=== PATIENT | female | born 1990 | race Caucasian/White ===

== ENCOUNTER → 2024-07-07 10:01 | Outpatient (REF) | payer BC, SELFPAY ==
[2024-07-07 12:42] LABS: ALT (SGPT) 18 U/L (0-35); AST (SGOT) 25 U/L (14-36); Albumin 3.8 g/dl (3.5-5.0); Alkaline Phosphatase 147 U/L (38-126); Blood Urea Nitrogen 13 mg/dl (7-17); Carbon Dioxide 24 mmol/L (22-30); Chloride 101 mmol/L (98-107); Glucose 184 mg/dl (70-99); Potassium 4.3 mmol/L (3.5-5.1); Sodium 133 mmol/L (135-145); Total Bilirubin 0.4 mg/dl (0.2-1.3); Total Protein 6.7 g/dl (6.3-8.2); eGFR > 60.00
[2024-07-07 12:46] LABS: Glycohemoglobin (HgbA1c) 8.5 % (4.0-5.6)
[2024-07-07 15:00] LABS: Microalbumin, Random Urine 3.5 mg/dl (0.6-1.7)
== END ==
LOC: HWLAB 10:01
PROVIDERS: ATTENDING PHYSICIAN Internal Medicine Endocrinology, Diabetes & Metabolism; FAMILY PHYSICIAN Internal Medicine
DX: E10.9 Type 1 diabetes mellitus without complications (principal)
CPT/HCPCS: 36415; 80053; 82043; 82570; 83036

== ENCOUNTER 2024-07-16 08:10 | Emergency (ER) | payer BC, SELFPAY ==
[2024-07-16 08:14] VITALS: BP 143/100
[2024-07-16 09:34] LABS: Glucose - Point of Care 95 mg/dl (70-99)
--- NOTE | 2024-07-16 09:38 | ED.GENMED ---
History of Present Illness
General
Chief Complaint: Medication Reaction
Time Seen by Provider: 07/16/24 09:28
History of Present Illness
History of Present Illness:
Patient is a 34-year-old woman with history of diabetes recently started Zepbound presenting to the emergency department with nausea vomiting diarrhea. Patient states that she had her first dose of this at [facility] yesterday. 6 hours later developed
abdominal cramping countless episodes of emesis and loose stools. She called her slat grader who said that these are side effects of this about however hers are significantly severe and advised her to come to the emergency department. Patient
does feel dehydrated as well as lightheaded dizzy. She also has been having increased urination. No fevers or chills. No travel. No antibiotics. No sick contacts. No new food. She does state that she had cannabinoid hyperemesis as well and
does smoke marijuana occasionally.
Past History
Past History
ED Past Medical History: Hypercholesterolemia, IDDM and Psychiatric (anxiety)
ED Past Surgical History: None
Social History
Tobacco: Smoker
Drug: None
Personal: Single
Phy Exam
Physical Exam
Physical Exam:
GENERAL: in no acute distress
HEENT: normocephalic, extraocular movements intact, dry oral mucosa
NECK: normal inspection
RESPIRATORY: no respiratory distress, clear to auscultation bilaterally
CARDIOVASCULAR: Regular rhythm tachycardic rate
ABDOMEN/: soft, non-distended, non-tender to palpation, no rebound or guarding
EXTREMITIES: non-tender, no edema/swelling
NEUROLOGIC: awake and alert, moves all extremities
SKIN: warm
Course
Orders/Labs/Results
Orders:
Orders
07/16/24 09:37
0.9% Sodium Chloride 1000 ml [Nss] 1,000 ml IV BOLUS
Ketorolac [Toradol] 15 mg IV NOW STA
Metoclopramide [Reglan] 10 mg IV NOW STA
Test Result ONCE
07/16/24 09:50
Complete Blood Count/With Diff Urgent
Comprehensive Metabolic Panel Urgent
HCG, Serum Qualitative Screen Urgent
07/16/24 11:45
Add On- LAB Urgent
Tests Added?: serum hcg qualitative
07/16/24 12:28
Calcium 200mg(Ca. Carb. 500mg) [Tums Chewable Tablet] 200 mg PO NOW STA
07/16/24 13:19
Urinalysis Reflex To Culture Urgent
Date Specimen was Collected: 07/16/24
Time Specimen was Collected: 12:34
Urine Microscopic Reflex Cult Urgent
Abnormal Lab Results
07/16/24 07/16/24
09:50 13:19
WBC 14.9 H 10^3/uL
(4.8-10.8)
RBC 6.22 H 10^6/uL
(4.20-5.40)
Hct 48.1 H %
(37.0-47.0)
MCV 77.3 L fL
(81.0-99.0)
MCH 25.1 L pg
(27.0-31.0)
MCHC 32.4 L g/dL
(33.0-37.0)
RDW 14.6 H %
(11.5-14.5)
Plt Count 465 H 10^3/uL
(130-400)
Abs Immat Gran (auto) 0.1 H 10^3/uL
(0-0.05)
Absolute Neuts (auto) 12.1 H 10^3/uL
(1.4-6.5)
Neutrophils % 81.6 H %
(42.2-75.2)
Lymphocytes % 13.6 L %
(20.5-51.1)
Creatinine 0.5 L mg/dL
(0.6-1.0)
Glucose 100 H mg/dl
(70-99)
Alkaline Phosphatase 155 H U/L
(38-126)
Total Protein 8.3 H g/dl
(6.3-8.2)
Urine Ketones 3+ A
(Negative)
Ur Occult Blood Reflex 2+ A
(Negative)
Urine Bacteria (Reflex) Few A
(Negative)
Urine Glucose 1+ A
(Negative)
Urine Albumin (Reflex) 2+ A
(Neg - Trace)
07/16/24 09:50
07/16/24 09:50
Vital Signs
Initial and Last Documented VS:
Initial Vital Signs
Temp Pulse Resp BP Pulse Ox
97.8 F 127 20 143/100 99
07/16/24 08:14 07/16/24 08:14 07/16/24 08:14 07/16/24 08:14 07/16/24 08:14
Last Documented Vital Signs
Temp Pulse Resp BP Pulse Ox
97.8 F 104 16 111/74 99
07/16/24 08:14 07/16/24 12:35 07/16/24 12:35 07/16/24 12:35 07/16/24 12:35
MDM/Problems Addressed
Differential Diagnosis Includes:
Patient is a 34-year-old woman with history of diabetes recently starting Zepbound presenting to the emergency department with nausea vomiting diarrhea. Patient is tachycardic and on exam she does have dry oral mucosa. Concern for side from
stepdown versus viral gastroenteritis. Her abdominal exam is benign so less likely to be acute surgical abdomen causing the symptoms such as obstruction or volvulus. Could also be urine infection given the urinary frequency. Will check blood work
and give fluids as well as antiemetics and pain control.
*Critical Care Note
Total Time (30-74mins, 75-104mins- exclusive of procedures): Not Applicable
Update Note
Update Note:
On reevaluation patient appears much more comfortable. The vomiting has subsided. She has not had any further episodes of diarrhea. The abdominal pain has also resolved.
Blood work is notable for leukocytosis. Certainly could be stress response. On reexamination the abdominal exam remains benign. She is very well-appearing. We did discuss the utility of imaging and after shared decision making we will hold off
at this time. She will follow-up with her primary care doctor or slat grader to have repeat blood work completed.
Urine is contaminated. We did discuss the utility of repeating urine however patient would prefer to be discharged at this time. Patient advised to get repeat urine as well as CBC by primary care doctor and to come back to the emergency department
if she has worsening of her symptoms. Will send prescription of Zofran. Will discharge at this time.
ED Attending Note
-
Portions of this chart may have been created with voice recognition software.� Occasional wrong word or��sound alike� substitutions may have occurred due to the inherent limitations of voice recognition software.
Discharge Plan
Departure
Patient Disposition: Home (Routine Discharge)
Date of Disposition: 07/16/24
Time of Disposition: 14:38
Patient with high blood pressure during this ER visit?: No
Discharge Problem:
Abdominal pain, vomiting, and diarrhea
Prescriptions:
New
ondansetron 4 mg tablet,disintegrating
4 mg PO Q8H PRN (Reason: nausea and vomiting) 2 Days Qty: 7 0RF
No Action
venlafaxine [Effexor XR] 150 MG capsule,extended release 24hr
150 mg PO DAILY
lorazepam 0.5 MG tablet
0.5 mg PO BID PRN (Reason: anxiety)
insulin glargine [Lantus Solostar U-100 Insulin] 300 UNITS/3 ML insulin pen
15 units SC HS
insulin aspart U-100 [Novolog FlexPen U-100 Insulin] 300 UNITS/3 ML insulin pen
8 units SC ACHS
Referrals:
Hernan Bolden DO [Family Provider] -
Activity Restrictions/Additional Instructions:
You have been evaluated in the Emergency Department today for nausea and vomiting. Your evaluation suggests that your symptoms will improve on its own with rest and fluids. Remember to drink plenty of fluids at home.
Please follow up with your primary care physician within two days. Please call your slat grader to discuss the Zepbound.
Return to the Emergency Department if you experience worsening or uncontrolled pain, inability to tolerate fluids by mouth, difficulty breathing, fevers 100.4�F or greater, recurrent vomiting, or any other concerning symptoms.
Thank you for choosing us for your care.
Interventions
Interventions:
*Risk Screen - Suicide Last Done: 07/16/24 08:15
*General Assessment Last Done: 07/16/24 08:15
*Neglect/Abuse Screening Last Done: 07/16/24 08:15
*ED COVID-19 Vaccine History Last Done: 07/16/24 08:15
ED-Skin Assessment Last Done: 07/16/24 09:45
ED- Pulmonary Assessment Last Done: 07/16/24 09:45
ED-EENT Assessment Last Done: 07/16/24 09:45
Discharge Date and Time
Print Language: CITIZEN [place]
[2024-07-16] MEDS: NSS 1000 IV (09:56)
[2024-07-16] MEDS: TORADOL 15 MG IV (09:56)
[2024-07-16] MEDS: REGLAN 10 MG IV (09:56)
[2024-07-16 09:59] VITALS: BP 106/81
[2024-07-16 10:26] LABS: % Basophils 0.3 % (0-2); % Eosinophils 0.1 % (0-6); % Immature Granulocytes 0.5 % (0-0.5); % Lymphocytes 13.6 % (20.5-51.1); % Monocytes 3.9 % (1.7-9.3); % Neutrophils 81.6 % (42.2-75.2); Absolute Basophils 0.1 10^3/uL (0-0.2); Absolute Immature Granulocytes 0.1 10^3/uL (0-0.05); Absolute Monocytes 0.6 10^3/uL (0.1-0.6); Absolute Neutrophils 12.1 10^3/uL (1.4-6.5); Hematocrit 48.1 % (37.0-47.0); Hemoglobin 15.6 g/dL (12.0-16.0); Mean Corp Hgb Conc. 32.4 g/dL (33.0-37.0); Mean Corpuscular Hgb 25.1 pg (27.0-31.0); Mean Corpuscular Volume 77.3 fL (81.0-99.0); Mean Platelet Volume 8.8 fL (7.4-10.4); Nucleated Red Blood Cells % 0 %; Platelet Count 465 10^3/uL (130-400); Red Blood Cell Count 6.22 10^6/uL (4.20-5.40); Red Cell Dist. Width 14.6 % (11.5-14.5); White Blood Cell Count 14.9 10^3/uL (4.8-10.8)
[2024-07-16 10:31] LABS: ALT (SGPT) 23 U/L (0-35); AST (SGOT) 28 U/L (14-36); Albumin 4.7 g/dl (3.5-5.0); Alkaline Phosphatase 155 U/L (38-126); Blood Urea Nitrogen 14 mg/dl (7-17); Calcium 9.5 mg/dl (8.4-10.2); Carbon Dioxide 25 mmol/L (22-30); Chloride 99 mmol/L (98-107); Glucose 100 mg/dl (70-99); Potassium 4.2 mmol/L (3.5-5.1); Sodium 135 mmol/L (135-145); Total Bilirubin 0.6 mg/dl (0.2-1.3); Total Protein 8.3 g/dl (6.3-8.2); eGFR > 60.00
[2024-07-16 12:35] VITALS: BP 111/74
[2024-07-16 13:31] LABS: HCG, Serum Qualitative Screen Negative
[2024-07-16] MEDS: TUMS CHEWABLE TABLET 200 MG PO (13:43)
[2024-07-16 14:27] LABS: Urine Albumin 2+ (Neg - Trace); Urine Bilirubin Negative (Negative); Urine Character Slightly Cloudy (Clear); Urine Color Yellow; Urine Glucose 1+ (Negative); Urine Ketone 3+ (Negative); Urine Leukocyte Negative (Negative); Urine Nitrite Negative (Negative); Urine Occult Blood 2+ (Negative); Urine Urobilinogen Negative (Neg - 1+)
[2024-07-16 14:36] LABS: Urine Bacteria Few (Negative); Urine Red Blood Cell 0-2 /HPF (0-2); Urine Squamous Cell >30 /LPF (Few); Urine White Cell 0-2 /HPF (0-5)
== END 2024-07-16 15:00 | disposition home or self-care (01) ==
LOC: EMR 08:10
PROVIDERS: EMERGENCY PHYSICIAN Student in an Organized Health Care Education/Training Program; FAMILY PHYSICIAN Internal Medicine
DX: R11.2 Nausea with vomiting, unspecified (principal); R19.7 Diarrhea, unspecified; E11.9 Type 2 diabetes mellitus without complications; F12.90 Cannabis use, unspecified, uncomplicated; E78.00 Pure hypercholesterolemia, unspecified; F17.200 Nicotine dependence, unspecified, uncomplicated; Z79.4 Long term (current) use of insulin; Z79.899 Other long term (current) drug therapy
CPT/HCPCS: 96374; 96375; 96361; 99284; 80053; 81003; 81015; 82962; 84703; 85025

== ENCOUNTER 2024-07-18 19:33 | Emergency (ER) | payer BC, SELFPAY ==
[2024-07-18 19:47] VITALS: BP 172/104
[2024-07-18 19:57] LABS: Glucose - Point of Care 86 mg/dl (70-99)
[2024-07-18 20:27] LABS: Venous Blood Gas B.E. 1.9 mmol/L (-4 to +4); Venous Blood Gas HCO3 25.7 mmol/L (22-27); Venous Blood Gas O2 Sat % 98.7 %; Venous Blood Gas pCO2 37 mmHg (35-48); Venous Blood Gas pH 7.45 (7.32-7.43); Venous Blood Gas pO2 91 mmHg (30-50)
[2024-07-18 20:33] LABS: Lactic Acid 1.1 mmol/L (0.7-2.0)
[2024-07-18 20:35] LABS: ALT (SGPT) 20 U/L (0-35); AST (SGOT) 26 U/L (14-36); Albumin 4.7 g/dl (3.5-5.0); Alkaline Phosphatase 166 U/L (38-126); Blood Urea Nitrogen 19 mg/dl (7-17); Calcium 9.9 mg/dl (8.4-10.2); Carbon Dioxide 24 mmol/L (22-30); Chloride 95 mmol/L (98-107); Glucose 87 mg/dl (70-99); Potassium 3.5 mmol/L (3.5-5.1); Sodium 133 mmol/L (135-145); Total Bilirubin 0.9 mg/dl (0.2-1.3); Total Protein 8.2 g/dl (6.3-8.2); eGFR > 60.00
[2024-07-18 20:41] LABS: % Basophils 0.5 % (0-2); % Eosinophils 0.6 % (0-6); % Immature Granulocytes 0.5 % (0-0.5); % Lymphocytes 22.2 % (20.5-51.1); % Monocytes 7.5 % (1.7-9.3); % Neutrophils 68.7 % (42.2-75.2); Absolute Basophils 0.1 10^3/uL (0-0.2); Absolute Eosinophils 0.1 10^3/uL (0-0.7); Absolute Immature Granulocytes 0.1 10^3/uL (0-0.05); Absolute Lymphocytes 4.3 10^3/uL (1.2-3.4); Absolute Monocytes 1.4 10^3/uL (0.1-0.6); Absolute Neutrophils 13.2 10^3/uL (1.4-6.5); B-Hydroxybutyrate 1.95 mmol/L (0.02-0.27); Mean Corp Hgb Conc. 33.3 g/dL (33.0-37.0); Mean Corpuscular Volume 75.1 fL (81.0-99.0); Mean Platelet Volume 8.3 fL (7.4-10.4); Nucleated Red Blood Cells % 0 %; Platelet Count 507 10^3/uL (130-400); Red Blood Cell Count 5.99 10^6/uL (4.20-5.40); Red Cell Dist. Width 14.4 % (11.5-14.5); White Blood Cell Count 19.2 10^3/uL (4.8-10.8)
[2024-07-18 21:09] LABS: Urine Albumin 3+ (Neg - Trace); Urine Bilirubin 1+ (Negative); Urine Character Slightly Cloudy (Clear); Urine Color Yellow; Urine Glucose Negative (Negative); Urine Ketone 3+ (Negative); Urine Leukocyte 2+ (Negative); Urine Nitrite Negative (Negative); Urine Occult Blood 1+ (Negative); Urine Urobilinogen Negative (Neg - 1+)
[2024-07-18 21:16] LABS: Urine Squamous Cell >30 /LPF (Few)
[2024-07-18 21:18] LABS: Urine Bacteria Many (Negative)
[2024-07-18 22:53] LABS: HCG, Serum Qualitative Screen Negative
[2024-07-18 23:00] VITALS: BP 113/75
[2024-07-18] MEDS: REGLAN 10 MG IV (23:50)
[2024-07-18] MEDS: BENADRYL 25 MG IV (23:50)
[2024-07-18] MEDS: PEPCID 20 MG IV (23:50)
[2024-07-18] MEDS: NSS 1000 IV (23:50)
[2024-07-19 01:40] VITALS: BP 116/67
[2024-07-19 01:42] VITALS: BMI 35.0
--- NOTE | 2024-07-19 02:22 | ED.GENMED ---
History of Present Illness
General
Chief Complaint: Abdominal Symptoms
Source: patient
Exam Limitations: none
Time Seen by Provider: 07/18/24 21:58
Nursing documentation reviewed up to this point in time: agreed with
History of Present Illness
History of Present Illness:
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 At the time 4 days ago immediately had GI symptoms was here in the ER treated with Reglan seemed to have improvement of symptoms at the time
went home has been taking Zofran without improvement worsening symptoms today. Denies any chest pain shortness of breath or fevers
Past History
Past History
ED Past Medical History: Hypercholesterolemia, IDDM and Psychiatric (anxiety)
ED Past Surgical History: None
Social History
Tobacco: Smoker
Drug: None
Personal: Single
Review of Systems
Review of Systems
Allergies reviewed?: Yes
All Other Systems: ROS reviewed and negative except as documented in HPI and ROS
Phy Exam
Physical Exam
Physical Exam:
GENERAL: Alert , in no apparent distress
EYE: pupils equal and reactive
NECK: Supple, no significant adenopathy.
ENT: o/p clr, mmm.
CARDIAC: Regular rate and rhythm .
LUNGS: Clear breath sounds bilaterally, no acute respiratory distress, no wheezes/rales/rhonchi
ABDOMEN: Soft, without focal tenderness, no r/g, no cvat
NEUROLOGICAL: Alert and oriented, no focal neuro deficits
SKIN: Warm and dry, skin intact.
MUSCULOSKELETAL: No edema, well perfused.
PSYCH: Normal and appropriate interaction.
Course
Orders/Labs/Results
Orders:
Orders
07/18/24 20:08
B-Hydroxybutyrate Urgent
Complete Blood Count/With Diff Urgent
Comprehensive Metabolic Panel Urgent
HCG, Serum Qualitative Screen Urgent
Comment: ADD ON
Lactic Acid Urgent
Venous Blood Gas Urgent
%Oxygen/Room Air: room air
07/18/24 20:57
Urine Culture Reflexed from UA [Urinalysis Reflex To Culture] Urgent
Date Specimen was Collected: 07/18/24
Time Specimen was Collected: 19:51
Urine Microscopic Reflex Cult Urgent
Urine Culture Urgent
[place] Source: U
Specimen Description:
Date Specimen was Collected: 07/18/24
Time Specimen was Collected: 19:51
07/18/24 22:16
Add On- LAB ONCE
Tests Added?: beta qual
07/18/24 23:14
0.9% Sodium Chloride 1000 ml [Nss] 1,000 ml IV BOLUS
Diphenhydramine [Benadryl] 25 mg IV NOW STA
Famotidine [Pepcid] 20 mg IV NOW STA
Metoclopramide [Reglan] 10 mg IV NOW STA
07/19/24 00:03
CT Abd/Pel (IV only)-DH only Urgent
Reason For Exam: diffuse abd pain vomiting
Abnormal Lab Results
07/18/24 07/18/24
20:08 20:57
WBC 19.2 H 10^3/uL
(4.8-10.8)
RBC 5.99 H 10^6/uL
(4.20-5.40)
MCV 75.1 L fL
(81.0-99.0)
MCH 25.0 L pg
(27.0-31.0)
Plt Count 507 H 10^3/uL
(130-400)
Abs Immat Gran (auto) 0.1 H 10^3/uL
(0-0.05)
Absolute Neuts (auto) 13.2 H 10^3/uL
(1.4-6.5)
Absolute Lymphs (auto) 4.3 H 10^3/uL
(1.2-3.4)
Absolute Monos (auto) 1.4 H 10^3/uL
(0.1-0.6)
VBG pH 7.45 H
(7.32-7.43)
VBG pO2 91 H mmHg
(30-50)
Sodium 133 L mmol/L
(135-145)
Chloride 95 L mmol/L
(98-107)
BUN 19 H mg/dl
(7-17)
Alkaline Phosphatase 166 H U/L
(38-126)
Urine Ketones 3+ A
(Negative)
Ur Occult Blood Reflex 1+ A
(Negative)
Urine Bilirubin 1+ A
(Negative)
Leukocyte Esterase Rfl 2+ A
(Negative)
Urine RBC 3-6 A /HPF
(0-2)
Urine Bacteria (Reflex) Many A
(Negative)
Urine Albumin (Reflex) 3+ A
(Neg - Trace)
B-Hydroxybutyrate 1.95 H mmol/L
(0.02-0.27)
07/18/24 20:08
07/18/24 20:08
Vital Signs
Initial and Last Documented VS:
Initial Vital Signs
Temp Pulse Resp BP Pulse Ox
98.2 F 128 20 172/104 98
07/18/24 19:47 07/18/24 19:47 07/18/24 19:47 07/18/24 19:47 07/18/24 19:47
Last Documented Vital Signs
Temp Pulse Resp BP Pulse Ox
98.2 F 96 15 116/67 100
07/18/24 19:47 07/19/24 01:40 07/19/24 00:15 07/19/24 01:40 07/19/24 01:40
MDM/Problems Addressed
MDM/Problems Addressed:
34-year-old female presenting to the emergency department today with concerns of ongoing GI symptoms. Here she was found have a white count likely due to ongoing retching and upper GI symptoms. Patient does have elevated BUN to creatinine ratio.
Patient was given fluids as well as Reglan and Benadryl with significant improvement in symptoms able to tolerate by mouth feeling much better. CT scan did not show any emergent pathology. Symptoms likely secondary to patient's new medication she
was written for more Reglan at home but otherwise given return precautions stable for outpatient management.
*Critical Care Note
Total Time (30-74mins, 75-104mins- exclusive of procedures): Not Applicable
ED Attending Note
-
Portions of this chart may have been created with voice recognition software.� Occasional wrong word or��sound alike� substitutions may have occurred due to the inherent limitations of voice recognition software.
Discharge Plan
Departure
Patient Disposition: Home (Routine Discharge)
Date of Disposition: 07/19/24
Time of Disposition: 02:25
Patient with high blood pressure during this ER visit?: No
Condition: Good
Covid-19: Not Applicable
Discharge Problem:
Vomiting
Instructions: Nausea and Vomiting, Adult (DC)
Prescriptions:
New
metoclopramide HCl [Reglan] 10 mg tablet
10 mg PO Q6H PRN (Reason: nausea and vomiting) Qty: 10 0RF
No Action
venlafaxine [Effexor XR] 150 MG capsule,extended release 24hr
150 mg PO DAILY
lorazepam 0.5 MG tablet
0.5 mg PO BID PRN (Reason: anxiety)
insulin glargine [Lantus Solostar U-100 Insulin] 300 UNITS/3 ML insulin pen
15 units SC HS
insulin aspart U-100 [Novolog FlexPen U-100 Insulin] 300 UNITS/3 ML insulin pen
8 units SC ACHS
ondansetron 4 mg tablet,disintegrating
4 mg PO Q8H PRN (Reason: nausea and vomiting) 2 Days Qty: 7 0RF
Referrals:
Zakrzewski,Hernan J., DO [Family Provider] -
Stand Alone Forms: Return to Work
Activity Restrictions/Additional Instructions:
You came to the emergency department today with concerns of ongoing GI symptoms. Here symptoms improved with Reglan. Please continue to take this at home as needed. Return for any worsening, new or concerning symptoms.
Interventions
Interventions:
*Risk Screen - Suicide Last Done: 07/19/24 01:43
*General Assessment Last Done: 07/18/24 19:47
*Neglect/Abuse Screening Last Done: 07/19/24 01:43
ED- Fall Risk Assessment Last Done: 07/19/24 02:09
*ED COVID-19 Vaccine History Last Done: 07/19/24 01:42
SY-Icbzrm-Zgkzuwduuj Assessment Last Done: 07/19/24 00:09
Discharge Date and Time
Print Language: AMHARIC
[2024-07-19 02:41] VITALS: BP 113/66
== END 2024-07-19 02:44 | disposition home or self-care (01) ==
LOC: EMR 19:33
PROVIDERS: Emergency Medicine; EMERGENCY PHYSICIAN Emergency Medicine; FAMILY PHYSICIAN Internal Medicine
DX: R11.2 Nausea with vomiting, unspecified (principal); E11.9 Type 2 diabetes mellitus without complications; E78.00 Pure hypercholesterolemia, unspecified; F41.9 Anxiety disorder, unspecified; F17.200 Nicotine dependence, unspecified, uncomplicated
CPT/HCPCS: 99284; 96374; 96375; 74177; 80053; 81003; 81015; 82010; 82805; 82962; 83605; 84703; 85025; 87086; Q9967

== ENCOUNTER → 2024-08-07 10:49 | Outpatient (REF) | payer BC, SELFPAY ==
[2024-08-07 12:55] LABS: % Basophils 0.6 % (0-2); % Eosinophils 1.5 % (0-6); % Immature Granulocytes 0.2 % (0-0.5); % Lymphocytes 20.3 % (20.5-51.1); % Monocytes 5.3 % (1.7-9.3); % Neutrophils 72.1 % (42.2-75.2); Absolute Basophils 0.1 10^3/uL (0-0.2); Absolute Eosinophils 0.1 10^3/uL (0-0.7); Absolute Lymphocytes 1.9 10^3/uL (1.2-3.4); Absolute Monocytes 0.5 10^3/uL (0.1-0.6); Absolute Neutrophils 6.8 10^3/uL (1.4-6.5); Hematocrit 38.9 % (37.0-47.0); Hemoglobin 12.8 g/dL (12.0-16.0); Mean Corp Hgb Conc. 32.9 g/dL (33.0-37.0); Mean Corpuscular Hgb 25.6 pg (27.0-31.0); Mean Corpuscular Volume 77.8 fL (81.0-99.0); Nucleated Red Blood Cells % 0 %; Platelet Count 398 10^3/uL (130-400); Red Cell Dist. Width 14.9 % (11.5-14.5); White Blood Cell Count 9.5 10^3/uL (4.8-10.8)
[2024-08-07 13:43] LABS: ALT (SGPT) 18 U/L (0-35); AST (SGOT) 22 U/L (14-36); Albumin 4.2 g/dl (3.5-5.0); Alkaline Phosphatase 138 U/L (38-126); Blood Urea Nitrogen 11 mg/dl (7-17); Calcium 9.1 mg/dl (8.4-10.2); Carbon Dioxide 23 mmol/L (22-30); Chloride 101 mmol/L (98-107); Glucose 142 mg/dl (70-99); HDL Cholesterol 53 mg/dl; Iron 50 ug/dl (37-170); LDL Cholesterol, Calculated 167 mg/dl; Potassium 3.9 mmol/L (3.5-5.1); Sodium 135 mmol/L (135-145); Total Bilirubin 0.5 mg/dl (0.2-1.3); Total Cholesterol 239 mg/dl (50-199); Total Protein 6.8 g/dl (6.3-8.2); Triglyceride 98 mg/dl (10-149); Very Low Density Lipoprotein 19 mg/dl (0-30); eGFR > 60.00
[2024-08-07 13:49] LABS: Vitamin D, 25-OH*** 32.2 ng/mL (30-80)
[2024-08-07 13:53] LABS: Percent Saturation 13 % (20-50); Total Iron Binding Capacity 380 ug/dl (265-497)
[2024-08-07 14:02] LABS: TSH Reflex To Free T4 1.01 uIU/ml (0.47-4.68)
[2024-08-07 14:07] LABS: Ferritin 11.7 ng/ml (6.24-137)
[2024-08-07 14:23] LABS: Vitamin B12 334 pg/ml (239-931)
== END ==
LOC: HWLAB 10:49
PROVIDERS: ATTENDING PHYSICIAN Nurse Practitioner Primary Care
DX: E78.2 Mixed hyperlipidemia (principal); Z79.899 Other long term (current) drug therapy
CPT/HCPCS: 36415; 80053; 80061; 82306; 82607; 82728; 83540; 83550; 84443; 85025

== ENCOUNTER 2024-08-13 10:12 | Emergency (ER) | payer BC, SELFPAY ==
[2024-08-13 10:15] VITALS: BP 132/86
--- NOTE | 2024-08-13 10:58 | ED.GENMED ---
History of Present Illness
General
Chief Complaint: Abdominal Pain
Source: patient
Exam Limitations: none
Time Seen by Provider: 08/13/24 10:43
History of Present Illness
History of Present Illness:
34 year old female presents with complaints of epigastric and left-sided abdominal pain. Occasionally radiates to her shoulder and occasionally is made worse with deep breathing. She was here a month ago having reactions to Zepbound. She has not
had Zepbound since her last visit. The pain is made worse with eating and also made worse with laying flat. She denies leg swelling. She denies significant shortness of breath. No recent travel. She is not on any control. She is an
insulin-dependent diabetic.
Past History
Past History
ED Past Medical History: Hypercholesterolemia, IDDM and Psychiatric (anxiety)
ED Past Surgical History: None
Social History
Tobacco: Smoker
Drug: None
Personal: Single
Phy Exam
Physical Exam
Physical Exam:
General: Well-appearing female slightly anxious no acute respiratory distress
HEENT: Normocephalic atraumatic
Heart: Regular rate and rhythm no murmur
Lungs: Clear no wheeze
Abdomen soft tender to the epigastric and left upper quadrants. No guarding or rebound normal bowel sounds nondistended
Extremities: No cyanosis or edema
Course
Orders/Labs/Results
Orders:
Orders
08/13/24 10:57
Electrocardiogram (*1) Urgent
Reason for Study: Abdominal Pain
EKG- Treatment ONCE
08/13/24 10:58
Test Result ONCE
08/13/24 11:11
Complete Blood Count/With Diff Urgent
Comprehensive Metabolic Panel Urgent
D-Dimer Urgent
HCG, Serum Qualitative Screen Urgent
Lipase Urgent
08/13/24 12:52
CT Abd/pelvis W Iv Cont Urgent
Comment:
Reason For Exam: left sided abdominal pain
Abnormal Lab Results
08/13/24
11:11
WBC 11.5 H 10^3/uL
(4.8-10.8)
RBC 5.51 H 10^6/uL
(4.20-5.40)
MCV 75.3 L fL
(81.0-99.0)
MCH 25.8 L pg
(27.0-31.0)
RDW 14.8 H %
(11.5-14.5)
Absolute Neuts (auto) 7.2 H 10^3/uL
(1.4-6.5)
Absolute Monos (auto) 0.8 H 10^3/uL
(0.1-0.6)
Carbon Dioxide 21 L mmol/L
(22-30)
Glucose 162 H mg/dl
(70-99)
Alkaline Phosphatase 132 H U/L
(38-126)
08/13/24 11:11
08/13/24 11:11
Vital Signs
Initial and Last Documented VS:
Initial Vital Signs
Temp Pulse Resp BP Pulse Ox
98.1 F 110 16 132/86 98
08/13/24 10:15 08/13/24 10:15 08/13/24 10:15 08/13/24 10:15 08/13/24 10:15
Last Documented Vital Signs
Temp Pulse Resp BP Pulse Ox
98.1 F 82 11 131/88 99
08/13/24 10:15 08/13/24 13:15 08/13/24 13:00 08/13/24 11:23 08/13/24 13:15
MDM/Problems Addressed
Differential Diagnosis Includes:
Abdominal pain. Recent visits for adverse reaction to Zepbound however she has not had this since her last visit. Question peptic ulcer disease versus constipation versus gastroparesis. Will check labs. Also screen for PE given the pleuritic
component with a D-dimer. She is low risk otherwise.
*Critical Care Note
Total Time (30-74mins, 75-104mins- exclusive of procedures): Not Applicable
Update Note
Update Note:
Workup here without obvious acute finding. There is a left sided ovarian cyst on the CT but unlikely that this is causing the upper abdominal pain. D-dimer within normal limits. This is patient's third visit here and expresses her frustration
given her ongoing discomfort. She is missing work because of her pain. Will recommend Carafate for discomfort. Discussed with GI lead front end developer for follow-up secondary to ongoing pain and third visit here. No indication for admission
ED Attending Note
-
Portions of this chart may have been created with voice recognition software.� Occasional wrong word or��sound alike� substitutions may have occurred due to the inherent limitations of voice recognition software.
Discharge Plan
Departure
Patient Disposition: Home (Routine Discharge)
Date of Disposition: 08/13/24
Time of Disposition: 15:28
Patient with high blood pressure during this ER visit?: No
Discharge Problem:
Abdominal pain
Instructions: Abdominal Pain
Prescriptions:
New
sucralfate [Carafate] 1 gram tablet
1 g PO BID Qty: 20 0RF
No Action
venlafaxine [Effexor XR] 150 MG capsule,extended release 24hr
150 mg PO DAILY
lorazepam 0.5 MG tablet
0.5 mg PO BID PRN (Reason: anxiety)
insulin glargine [Lantus Solostar U-100 Insulin] 300 UNITS/3 ML insulin pen
15 units SC HS
insulin aspart U-100 [Novolog FlexPen U-100 Insulin] 300 UNITS/3 ML insulin pen
8 units SC ACHS
ondansetron 4 mg tablet,disintegrating
4 mg PO Q8H PRN (Reason: nausea and vomiting) 2 Days Qty: 7 0RF
metoclopramide HCl [Reglan] 10 mg tablet
10 mg PO Q6H PRN (Reason: nausea and vomiting) Qty: 10 0RF
Referrals:
Hernan Bolden, [Family Provider] -
Activity Restrictions/Additional Instructions:
Use Carafate as directed. The GI office will call you to set up appointment. Return if needed otherwise
Interventions
Interventions:
*Risk Screen - Suicide Last Done: 08/13/24 10:17
*General Assessment Last Done: 08/13/24 11:07
*Neglect/Abuse Screening Last Done: 08/13/24 10:17
*ED- Fall Risk Assessment Last Done: 08/13/24 11:07
*ED COVID-19 Vaccine History Last Done: 08/13/24 11:07
DI-Kocbgm-Otgidbviel Assessment Last Done: 08/13/24 11:07
Discharge Date and Time
Print Language: BELAR[place]
[2024-08-13 11:23] VITALS: BP 131/88
[2024-08-13 12:24] LABS: % Basophils 0.6 % (0-2); % Eosinophils 1.3 % (0-6); % Immature Granulocytes 0.3 % (0-0.5); % Lymphocytes 28.2 % (20.5-51.1); % Monocytes 6.8 % (1.7-9.3); % Neutrophils 62.8 % (42.2-75.2); Absolute Basophils 0.1 10^3/uL (0-0.2); Absolute Eosinophils 0.2 10^3/uL (0-0.7); Absolute Lymphocytes 3.2 10^3/uL (1.2-3.4); Absolute Monocytes 0.8 10^3/uL (0.1-0.6); Absolute Neutrophils 7.2 10^3/uL (1.4-6.5); Hematocrit 41.5 % (37.0-47.0); Hemoglobin 14.2 g/dL (12.0-16.0); Mean Corp Hgb Conc. 34.2 g/dL (33.0-37.0); Mean Corpuscular Hgb 25.8 pg (27.0-31.0); Mean Corpuscular Volume 75.3 fL (81.0-99.0); Mean Platelet Volume 8.9 fL (7.4-10.4); Nucleated Red Blood Cells % 0 %; Platelet Count 327 10^3/uL (130-400); Red Blood Cell Count 5.51 10^6/uL (4.20-5.40); Red Cell Dist. Width 14.8 % (11.5-14.5); White Blood Cell Count 11.5 10^3/uL (4.8-10.8)
[2024-08-13 12:39] LABS: D-Dimer 0.33 ug/mlFEU (0.00-0.50)
[2024-08-13 12:48] LABS: ALT (SGPT) 16 U/L (0-35); AST (SGOT) 21 U/L (14-36); Albumin 3.9 g/dl (3.5-5.0); Alkaline Phosphatase 132 U/L (38-126); Blood Urea Nitrogen 12 mg/dl (7-17); Calcium 9.6 mg/dl (8.4-10.2); Carbon Dioxide 21 mmol/L (22-30); Chloride 105 mmol/L (98-107); Glucose 162 mg/dl (70-99); Lipase 148 U/L (23-300); Sodium 135 mmol/L (135-145); Total Bilirubin 0.4 mg/dl (0.2-1.3); Total Protein 6.9 g/dl (6.3-8.2); eGFR > 60.00
[2024-08-13 12:51] LABS: HCG, Serum Qualitative Screen Negative
[2024-08-13 12:57] LABS: Potassium 4.1 mmol/L (3.5-5.1)
== END 2024-08-13 15:37 | disposition home or self-care (01) ==
LOC: EMR 10:12
PROVIDERS: Physician Assistant; EMERGENCY PHYSICIAN Emergency Medicine; FAMILY PHYSICIAN Internal Medicine
DX: R10.13 Epigastric pain (principal); N83.202 Unspecified ovarian cyst, left side; E11.9 Type 2 diabetes mellitus without complications; E78.00 Pure hypercholesterolemia, unspecified; F17.200 Nicotine dependence, unspecified, uncomplicated; Z79.4 Long term (current) use of insulin
CPT/HCPCS: 99284; 74177; 80053; 83690; 84703; 85025; 85379; 93005; Q9967

== ENCOUNTER → 2024-09-23 15:05 | Outpatient (REF) | payer BC, SELFPAY | LOC: DHSLP 15:05 | PROVIDERS: ATTENDING PHYSICIAN Nurse Practitioner Primary Care | DX: G47.19 Other hypersomnia (principal); R06.83 Snoring | CPT/HCPCS: 95800 ==

== ENCOUNTER 2024-12-03 06:28 | Day surgery (SDC) | payer BC, SELFPAY ==
[2024-12-03 08:57] LABS: Glucose - Point of Care 124 mg/dl (70-99)
== END 2024-12-03 11:13 | disposition home or self-care (01) ==
LOC: GI 06:28
PROVIDERS: ATTENDING PHYSICIAN Internal Medicine Gastroenterology
DX: K21.9 Gastro-esophageal reflux disease without esophagitis (principal); K22.89 Other specified disease of esophagus; K44.9 Diaphragmatic hernia without obstruction or gangrene; K31.7 Polyp of stomach and duodenum; R10.12 Left upper quadrant pain
CPT/HCPCS: 43239; 82962; 88305; 88342